=== PATIENT | female | born 1955 | race American Indian/Alaskan Native ===

== ENCOUNTER → 2017-06-23 08:33 | Outpatient (CLI) | payer OTHER ==
[2016-06-20 13:19] VITALS: BMI 28.9
[~2017-06-23 08:33] MED LIST: CARAFATE1 G PO; FEOSOL LIQ300 MG/5 M PO; KOMBIGLYZE XR1 EAC1 PO; OMEPRAZOLE40 MG PO
[2017-06-23 09:46] LABS: ALBUMIN 3.6 g/dL (3.4-5.0); BILIRUBIN - DIRECT 0.11 mg/dL (0.00-0.30); BILIRUBIN - INDIRECT 0.39 mg/dL (0.00-1.00); BILIRUBIN - TOTAL 0.5 mg/dL (0.2-1.3); PROTEIN - SERUM 7.3 g/dL (6.4-8.2)
== END | disposition home or self-care (01) ==
LOC: D.US 08:33
PROVIDERS: Internal Medicine Gastroenterology
DX: K76.0 Fatty (change of) liver, not elsewhere classified (principal)

== ENCOUNTER → 2018-06-17 07:20 | Outpatient (CLI) | payer OTHER ==
[2016-06-20 13:19] VITALS: BMI 28.9
[2018-06-17 08:25] LABS: ALBUMIN 3.5 g/dL (3.4-5.0); BILIRUBIN - DIRECT 0.14 mg/dL (0.00-0.30); BILIRUBIN - INDIRECT 0.26 mg/dL (0.00-1.00); BILIRUBIN - TOTAL 0.4 mg/dL (0.2-1.3)
== END | disposition home or self-care (01) ==
LOC: D.US 06-10 09:30 → D.LAB 06-10 10:00 → D.US 06-11 08:00 → D.LAB 06-11 09:00 → D.US 06-15 07:30 → D.LAB 06-15 08:00 → D.US 07:20
PROVIDERS: Internal Medicine Gastroenterology
DX: K76.0 Fatty (change of) liver, not elsewhere classified (principal); R10.9 Unspecified abdominal pain

== ENCOUNTER → 2019-06-14 08:49 | Outpatient (CLI) | payer OTHER ==
[2016-06-20 13:19] VITALS: BMI 28.9
== END | disposition home or self-care (01) ==
LOC: D.US 08:49
PROVIDERS: ATTEND Internal Medicine Gastroenterology
DX: K76.0 Fatty (change of) liver, not elsewhere classified (principal)

== ENCOUNTER → 2020-05-03 08:26 | Outpatient (CLI) | payer OTHER ==
[2016-06-20 13:19] VITALS: BMI 28.9
== END | disposition home or self-care (01) ==
LOC: D.HCCECHO 03-24 08:30
PROVIDERS: ATTEND Internal Medicine Cardiovascular Disease
DX: I10 Essential (primary) hypertension (principal); I20.9 Angina pectoris, unspecified